=== PATIENT | female | born 1955 | race Caucasian/White ===

== ENCOUNTER 2017-11-26 16:05 | Emergency (ER) | payer MEDICARE, MEDICAID ==
[~2017-11-26] VITALS: Ht 165.1 cm; Wt 89.0 kg
[~2017-11-26 16:05] MED LIST: BIMA2.5D4; ESOM20CA PO; EST1T PO; ZOLP5TAB8 PO
[2017-11-26 16:24] VITALS: BP 141/81
== END 2017-11-26 20:37 | disposition home or self-care (01) ==
LOC: ER 16:06
DX: T18.4XXA Foreign body in colon, initial encounter (principal); Z88.5 Allergy status to narcotic agent; Z88.2 Allergy status to sulfonamides; W45.8XXA Other foreign body or object entering through skin, initial encounter; Y93.89 Activity, other specified; Y92.89 Other specified places as the place of occurrence of the external cause; Y99.8 Other external cause status
CPT/HCPCS: 74018; 99283; A6449

== ENCOUNTER 2018-04-07 07:08 | Emergency (ER) | payer MEDICARE, MEDICAID ==
[~2018-04-07] VITALS: Ht 165.1 cm; Wt 97.7 kg
[2018-04-07 07:10] VITALS: BP 155/83
[2018-04-07] MEDS ORDERED: mag hydrox/Alum hydrox/simeth 30ml oral suspension PO ONE (07:55)
[2018-04-07] MEDS ORDERED: LIDOcaine Viscous 15ml cup PO ONE (07:55)
== END 2018-04-07 08:30 | disposition home or self-care (01) ==
LOC: ER 07:09
DX: J02.9 Acute pharyngitis, unspecified (principal); I49.9 Cardiac arrhythmia, unspecified; I10 Essential (primary) hypertension; Z87.442 Personal history of urinary calculi; Z88.2 Allergy status to sulfonamides; Z88.8 Allergy status to other drugs, medicaments and biological substances; Z88.5 Allergy status to narcotic agent; Z79.899 Other long term (current) drug therapy
CPT/HCPCS: 87081; 87880; 99284

== ENCOUNTER 2019-04-18 21:28 | Emergency (ER) | payer MEDICARE, MEDICAID ==
[~2019-04-18] VITALS: Ht 165.1 cm; Wt 96.4 kg
[2019-04-18 21:30] VITALS: BP 158/98
[2019-04-18] MEDS ORDERED: fentaNYL/PF 50MCG/1 ML 2ML syringe IM ONE (22:55)
[2019-04-18] MEDS ORDERED: acetaminophen 325mg tablet PO ONE (22:55)
[2019-04-18] MEDS ORDERED: ondansetron 4mg rapidly disintigrating tab PO ONE (22:55)
[2019-04-18] MEDS ORDERED: oxyCODONE/APAP 5-325mg tablet PO ONE (23:10)
[2019-04-18] MEDS ORDERED: OXYC-145 PO (23:44)
[2019-04-18] MEDS ORDERED: ONDA8TAB6 PO (23:44)
== END 2019-04-19 01:05 | disposition home or self-care (01) ==
LOC: ER 21:29
DX: S82.831A Other fracture of upper and lower end of right fibula, initial encounter for closed fracture (principal); S60.812A Abrasion of left wrist, initial encounter; S80.212A Abrasion, left knee, initial encounter; M25.561 Pain in right knee; I10 Essential (primary) hypertension; Z88.6 Allergy status to analgesic agent; Z88.5 Allergy status to narcotic agent; Z88.2 Allergy status to sulfonamides; Z79.899 Other long term (current) drug therapy; W18.39XA Other fall on same level, initial encounter; Y93.01 Activity, walking, marching and hiking; Y92.89 Other specified places as the place of occurrence of the external cause; Y99.8 Other external cause status
CPT/HCPCS: 73080; 73110; 73564; 73610; 99284; J2405

== ENCOUNTER 2020-06-11 13:51 | Emergency (ER) | payer MEDICARE, MEDICAID ==
[~2020-06-11] VITALS: Ht 165.1 cm; Wt 105.0 kg
[~2020-06-11 13:51] MED LIST changes: +ONDA8TAB6 PO; +OXYC-145 PO
[2020-06-11] MEDS ORDERED: oxyCODONE/APAP 5-325mg tablet PO ONE (14:45)
[2020-06-11] MEDS ORDERED: OXYC-145 PO (15:23)
[2020-06-11] MEDS ORDERED: AMOX-117 PO (15:23)
[2020-06-11 15:47] VITALS: BP 171/109
== END 2020-06-11 15:49 | disposition home or self-care (01) ==
LOC: ER 13:51
DX: S02.832A Fracture of medial orbital wall, left side, initial encounter for closed fracture (principal); Z72.89 Other problems related to lifestyle; Z88.5 Allergy status to narcotic agent; Z88.2 Allergy status to sulfonamides; Z88.8 Allergy status to other drugs, medicaments and biological substances; Z79.899 Other long term (current) drug therapy; W01.0XXA Fall on same level from slipping, tripping and stumbling without subsequent striking against object, initial encounter; Y93.89 Activity, other specified; Y92.89 Other specified places as the place of occurrence of the external cause; Y99.8 Other external cause status
CPT/HCPCS: 70486; 99284

== ENCOUNTER 2022-01-13 15:49 | Outpatient (CLI) | payer MEDICARE, MEDICAID ==
[2022-01-13 16:23] LABS: ABG BASE EXCESS 1.4 mmol/L (-2.0-2.0); ABG HCO3 26.1 mmol/L (22.0-26.0); ABG OXYGEN SATURATION 96.4 % (94-97); ABG PCO2 (T) 41.7 mmHg (32.0-45.0); ABG PO2 (T) 86.9 mmHg (75.0-100.0); ALLEN'S TEST POSITIVE; FCOHb 0.6 % (0.0-3.9); FMetHb 0.1 % (0.0-1.5); FO2Hb 95.7 % (94-97); TOTAL HEMOGLOBIN 15.7 G/dl (12.0-16.0)
== END 2022-01-13 23:59 | disposition home or self-care (01) ==
LOC: RT 15:49
PROVIDERS: ATTEND Internal Medicine Pulmonary Disease
DX: J45.998 Other asthma (principal); G47.30 Sleep apnea, unspecified; Z87.891 Personal history of nicotine dependence; Z79.899 Other long term (current) drug therapy
CPT/HCPCS: 36600; 82803; 85018; 94060; 94727; 94729; 94760

== ENCOUNTER 2024-01-07 15:52 | Emergency (ER) | payer MEDICARE, MEDICAID ==
[~2024-01-07] VITALS: Ht 165.1 cm; Wt 100.0 kg
[2024-01-07 15:58] VITALS: TEMP 97.7
[2024-01-07] MEDS: adenosine 3mg/ml 2ml vial IV ONE (16:13)
[2024-01-07] MEDS: normal saline 1000ml 1,000 ML IV ONE (16:26)
[2024-01-07 16:28] VITALS: BP 141/79; PULSE 91; RESP 20; O2SAT 99
[2024-01-07 16:31] LABS: BASOPHILS # (AUTO) 0.1 X10'3 (0-0.2); BASOPHILS % (AUTO) 0.6 % (0-1); EOSINOPHILS # (AUTO) 0.9 X10'3 (0-0.9); EOSINOPHILS % (AUTO) 5.4 % (0-6); HEMATOCRIT 47.5 % (35.0-45.0); LYMPHOCYTES # (AUTO) 3.8 X10'3 (1.1-4.8); LYMPHOCYTES % (AUTO) 23.7 % (21-51); MEAN CORPUSCULAR HEMOGLOBIN 29.9 PG (27.0-31.0); MEAN CORPUSCULAR HGB CONC 33.7 g/dL (33.0-36.5); MEAN CORPUSCULAR VOLUME 88.7 FL (78-98); MEAN PLATELET VOLUME 7.5 FL (7.4-10.4); MONOCYTES # (AUTO) 1.2 X10'3 (0-0.9); MONOCYTES % (AUTO) 7.4 % (2-12); NEUTROPHILS % (AUTO) 62.9 % (42-75); PLATELET COUNT 286 X10'3 (140-440); RED BLOOD COUNT 5.35 X10'6 (4.20-5.60); WHITE BLOOD COUNT 15.9 X10'3 (4.5-11.0)
[2024-01-07 16:47] LABS: ALANINE AMINOTRANSFERASE 34 U/L (12-78); ALBUMIN 3.3 G/DL (3.4-5.0); ALBUMIN/GLOBULIN RATIO 0.8 (1.1-1.5); ALKALINE PHOSPHATASE 89 IU/L (46-116); ANION GAP 12 (8-16); ASPARTATE AMINO TRANSFERASE 23 U/L (10-37); BILIRUBIN,TOTAL 0.5 MG/DL (0.1-1.0); CALCIUM 9.3 MG/DL (8.5-10.1); CHLORIDE 102 MMOL/L (99-107); CREATININE 1.16 MG/DL (0.40-0.90); GLUCOSE 178 MG/DL (70-104); POTASSIUM 3.8 MMOL/L (3.5-5.1); SODIUM 138 MMOL/L (135-145); TOTAL CARBON DIOXIDE 24.4 MMOL/L (24-32); TOTAL PROTEIN 7.7 G/DL (6.4-8.2); eCRCL 41 ML/MIN; eGFR 46 ML/MIN
[2024-01-07 16:54] LABS: PRO BRAIN NATRIURETIC PEPTIDE 3341 PG/ML (0-125)
[2024-01-07] MEDS ORDERED: adenosine 3mg/ml 2ml vial IV ONE (17:00)
[2024-01-07 17:03] LABS: BLOOD UREA NITROGEN 17 MG/DL (7-18); BUN/CREATININE RATIO 14.7 (10.0-20.0)
== END 2024-01-07 19:22 | disposition home or self-care (01) ==
LOC: ER 15:53
DX: I47.10 Supraventricular tachycardia, unspecified (principal); I10 Essential (primary) hypertension; E11.9 Type 2 diabetes mellitus without complications; Z88.6 Allergy status to analgesic agent; Z88.5 Allergy status to narcotic agent; Z88.2 Allergy status to sulfonamides; Z79.899 Other long term (current) drug therapy
CPT/HCPCS: 36415; 71045; 80053; 83880; 84484; 85025; 93005; 96361; 96374; 99291; J0153; J7030